=== PATIENT | male | born 1990 | race Caucasian/White ===

== ENCOUNTER 2017-12-01 10:11 | Emergency (ER) | payer OTHER ==
[2017-12-01] MEDS ORDERED: Tetan/Diph/Pertus SYR(Tdap)* 0.5 ML SYR(BOOSTRIX) use SYR IM ONE (12:25)
[2017-12-01] MEDS ORDERED: Rabies Vaccine (RabAvert)* 2.5 UNITS VIAL IM ONE (12:25)
--- NOTE | 2017-12-01 12:31 | ED ---
Bite Injury/Animal - HPI Summary HPI Summary: Patient presents with suspected bat bite the back of his neck last night. Reports [place] saw a bat flying. He continued to ride towards it and felt something on the back of his neck. His looked at his neck this morning and noticed to small red spots. He denies pain, stiffness, fever, chills, swelling. He has a history of rabies vaccine 2 and half years ago. He is unsure of his last tetanus vaccine but believes it was greater than 5 years ago. - History of Current Complaint Chief Complaint: EDAnimalBite Stated Complaint: EXPOSURE(BAT) Time Seen by Provider: 12/01/17 11:36 Hx Obtained From: Patient Pain Intensity: 0 - Allergies/Home Medications Allergies/Adverse Reactions: Allergies Allergy/AdvReac Type Severity Reaction Status Date / Time BLOOD THINNERS Allergy See Comment Uncoded 12/01/17 10:16 Home Medications: Home Medications Cholecalciferol TAB* [Vitamin D TAB*] 2,000 units PO DAILY 12/01/17 [History Confirmed 12/01/17] PMH/Surg Hx/FS Hx/Imm Hx Previously Healthy: Yes Endocrine/Hematology History: Denies: Hx Anticoagulant Therapy, Hx Blood Disorders, Hx Diabetes, Autoimmune Disease Cardiovascular History: Denies: Hx Hypertension, Hx Pacemaker/ICD Respiratory History: Denies: Hx Asthma History: Denies: Hx Dialysis, Hx Renal Disease Sensory History: Denies: Hx Hearing Aid Psychiatric History: Denies: Hx Panic Disorder - Surgical History Surgery Procedure, Year, and Place: BILATERAL ARTHROSCOPIC KNEE SURGERY; TONSILS ; WISDOM TEETH; VASECTOMY; - Immunization History Immunizations Up to Date: Unable to Obtain/Confirm Infectious Disease History: No Infectious Disease History: Denies: Hx of Known/Suspected MRSA, Traveled Outside the [place] in Last 30 Days - Family History Known Family History: Positive: None - Social History Occupation: Student - grad student Lives: With Family Alcohol Use: Rare Hx Substance Use: No Substance Use Type: Reports: None Hx Tobacco Use: No Smoking Status (MU): Never Smoked Tobacco Review of Systems Constitutional: Negative Negative: Fever, Chills, Fatigue Positive: no symptoms reported Musculoskeletal: Negative Skin: Other - 2 red areas on neck Neurological: Negative Psychological: Normal All Other Systems Reviewed And Are Negative: Yes Physical Exam Triage Information Reviewed: Yes Vital Signs On Initial Exam: Initial Vitals Temp Pulse Resp BP Pulse Ox 97.7 F 82 14 134/73 100 12/01/17 10:17 12/01/17 10:17 12/01/17 10:17 12/01/17 10:17 12/01/17 10:17 Vital Signs Reviewed: Yes Appearance: Positive: Well-Appearing, No Pain Distress, Well-Nourished Skin: Positive: Warm, Skin Color Reflects Adequate Perfusion, Dry - 2-3 1mm areas of erythema with superficial skin missing - no focal erythema, edema, scabbing, drainage Head/Face: Positive: Normal Head/Face Inspection Eyes: Positive: Normal, EOMI ENT: Positive: Hearing grossly normal Neck: Positive: Supple, Nontender Respiratory/Lung Sounds: Positive: Breath Sounds Present Cardiovascular: Positive: Normal Musculoskeletal: Positive: Normal, Strength/ROM Intact Neurological: Positive: Normal, Sensory/Motor Intact, Alert, Oriented to Person Place, Time, CN Intact II-III Psychiatric: Positive: Normal Diagnostics - Vital Signs Vital Signs Temp Pulse Resp BP Pulse Ox 12/01/17 10:17 97.7 F 82 14 134/73 100 - Laboratory Lab Statement: Any lab studies that have been ordered have been reviewed, and results considered in the medical decision making process. Bite Injury Course/Dx - Course Course Of Treatment: Will tx w/ rabies vaccine (1st dose here, 2nd dose in 3 days at [facility]). Boosted tetanus today as well. Reviewed danger s/sx of when to seek medical attention. Pt agrees w/ plan. - Diagnoses Provider Diagnosis: Bat bite wound Discharge - Sign-Out/Discharge Documenting (check all that apply): Patient Departure - Discharge Plan Condition: Stable Disposition: HOME Patient Education Materials: Animal Bite (ED) Referrals: [facility] [Medical Doctor] - Additional Instructions: You received your 1st rabies vaccine here today. You will require a 2nd vaccine in 3 days - call [facility] tomorrow to schedule 2nd injection. Wound appears to be superficial - wash daily with soap and water and monitor for signs/symptoms of infection - if these develop, seek medical attention *If you develop sign/symptoms of rabies infection (see educational handout), return to ED - Billing Disposition and Condition Condition: STABLE Disposition: Home
[2017-12-01 13:20] VITALS: BP 115/73
== END 2017-12-01 13:18 | disposition home or self-care (01) ==
LOC: ED 10:11
DX: S11.95XA Open bite of unspecified part of neck, initial encounter (principal); W55.81XA Bitten by other mammals, initial encounter; Y93.55 Activity, bike riding; Y92.828 Other wilderness area as the place of occurrence of the external cause; Z23 Encounter for immunization
CPT/HCPCS: 90471; 90675; 96372; 99281

== ENCOUNTER 2018-03-10 22:00 | Emergency (ER) | payer OTHER ==
[2018-03-10 22:31] LABS: Urine Appearance Clear; Urine Blood Negative (Negative); Urine Color Yellow; Urine Ketones Negative (Negative); Urine Protein Negative (Negative); Urine Specific Gravity 1.026 (1.010-1.030); Urine Urobilinogen Negative (Negative)
--- NOTE | 2018-03-10 23:00 | ED ---
GI/ HPI - HPI Summary HPI Summary: A 27 y/o male presents to the ED c/o testicular pain. He states that his pain radiates to his back and lower abdomen. He says that at 03/06/[address] Jennings, his urologist, for a lump on his left testicle. He states that his pain has been gradually getting worse. He admits to having nausea, but denies vomiting, hematuria, dysuria or a swollen testicle. - History of Current Complaint Chief Complaint: EDUrogenitalProblems Time Seen by Provider: 03/10/18 22:43 Stated Complaint: GROIN AND BACK PAIN Hx Obtained From: Patient Onset/Duration: Started Hours Ago, Still Present Timing: Constant Severity: Moderate Current Severity: Moderate Pain Intensity: 5 - out of 10 Additional Locations for Males: Testicles Pain Radiates to: Back - Allergy/Home Medications Allergies/Adverse Reactions: Allergies Allergy/AdvReac Type Severity Reaction Status Date / Time BLOOD THINNERS Allergy See Comment Uncoded 03/10/18 22:09 PMH/Surg Hx/FS Hx/Imm Hx Endocrine/Hematology History: Denies: Hx Anticoagulant Therapy, Hx Blood Disorders, Hx Diabetes Cardiovascular History: Denies: Hx Hypertension, Hx Pacemaker/ICD Respiratory History: Denies: Hx Asthma History: Denies: Hx Dialysis, Hx Renal Disease Sensory History: Denies: Hx Hearing Aid Psychiatric History: Denies: Hx Panic Disorder - Surgical History Surgery Procedure, Year, and Place: BILATERAL ARTHROSCOPIC KNEE SURGERY; TONSILS ; WISDOM TEETH; VASECTOMY; Infectious Disease History: No Infectious Disease History: Denies: Hx of Known/Suspected MRSA, Traveled Outside the US in Last 30 Days - Family History Known Family History: Positive: Hypertension, Diabetes Negative: Cardiac Disease - Social History Alcohol Use: Rare Hx Substance Use: No Substance Use Type: Reports: None Hx Tobacco Use: No Smoking Status (MU): Never Smoked Tobacco Review of Systems Negative: Fever Positive: Abdominal Pain, Nausea. Negative: Vomiting Positive: pain - left testicle. Negative: dysuria, hematuria Positive: Myalgia - back pain All Other Systems Reviewed And Are Negative: Yes Physical Exam - Summary Physical Exam Summary: Appearance: Well-appearing, Well-nourished, lying in bed comfortably Skin: Warm, dry, no obvious rash Eyes: sclera anicteric, no conjunctival pallor ENT: mucous membranes moist, pharynx appears normal Neck: Supple, nontender Respiratory: Clear to auscultation, no signs of respiratory distress Cardiovascular: Normal S1, S2. No murmurs. Normal distal pulses in tibial and radial bilaterally. Abdomen: Mild RUQ tenderness without peritoneal tenderness Musculoskeletal: Normal, Strength/ROM Intact Neurological: A&Ox3, awake and alert, mentation is normal, speech is fluent and appropriate Psychiatric: affect is normal, does not appear anxious or depressed Genitourinry: normal, pea sized lump on left testicle. Triage Information Reviewed: Yes Vital Signs On Initial Exam: Initial Vitals Temp Pulse Resp BP Pulse Ox 99.1 F 101 16 147/78 97 03/10/18 22:00 03/10/18 22:00 03/10/18 22:00 03/10/18 22:00 03/10/18 22:00 Vital Signs Reviewed: Yes Diagnostics - Vital Signs Vital Signs Temp Pulse Resp BP Pulse Ox 03/10/18 22:00 99.1 F 101 16 147/78 97 - Laboratory Lab Results: Lab Results 03/10/18 Range/Units 22:15 Urine Color Yellow Urine Appearance Clear Urine pH 5.0 (5-9) Ur Specific [place] 1.026 (1.010-1.030) Urine Protein Negative (Negative) Urine Ketones Negative (Negative) Urine Blood Negative (Negative) Urine Nitrate Negative (Negative) Urine Bilirubin Negative (Negative) Urine Urobilinogen Negative (Negative) Ur Leukocyte Esterase Negative (Negative) Urine Glucose Negative (Negative) Result Diagrams: 03/10/18 23:10 03/10/18 23:10 Lab Statement: Any lab studies that have been ordered have been reviewed, and results considered in the medical decision making process. - CT abdomen/pelvis CT Interpretation Completed By: Radiologist - No CT findings to correlate with patient's symptomatology. Specifically no appendicitis. This report has been reviewed by the ED physician. GIGU Course/Dx - Course Course Of Treatment: A 27 y/o male presents to the ED c/o testicular pain. He states that his pain radiates to his back and lower abdomen. He says that at he went to Dr. Jennings, his urologist, for a lump on his left testicle. He states that his pain has been gradually getting worse. He admits to having nausea, but denies vomiting, hematuria, dysuria or a swollen testicle. His PE revealed a small pea sized lump on his left testicle. His abdomen/pelvis CT revealed: No CT findings to correlate with patient's symptomatology. Specifically no appendicitis. Dx: abdominal pain. The patient will be discharged, follow up with his urologist as scheduled, and will be discharged. The patient is agreeable to this plan. - Diagnoses Provider Diagnoses: Abdominal pain Discharge - Sign-Out/Discharge Documenting (check all that apply): Patient Departure - DC - Discharge Plan Condition: Good Disposition: HOME Patient Education Materials: Acute Abdominal Pain (ED) Referrals: Moise Jennings MD [Medical Doctor] - (as scheduled) Additional Instructions: We did not find an exact cause for your pain tonight. Your CT scan and lab studies were all unremarkable. Keep the appt for the [place] as there is a small mass on the left testicle that needs further evaluation. - Attestation Statements Document Initiated by Scribe: Yes Documenting Scribe: Sanjay Tracey Provider For Whom Scribe is Documenting (Include Credential): Efrain Baker MD Scribe Attestation: ISanjay, scribed for Efrain Baker MD on 03/11/18 at 0209.
[2018-03-10 23:18] LABS: ABS Basophils 0 10^3/ul (0-0.2); ABS Eosinophils 0.1 10^3/ul (0-0.6); ABS Lymphocytes 2.4 10^3/ul (1.0-4.8); ABS Monocytes 0.8 10^3/ul (0-0.8); ABS Neutrophils 3.3 10^3/ul (1.5-7.7); ABS Nucleated RBC 0 10^3/ul; Hematocrit 43 % (42-52); Hemoglobin 14.5 g/dl (14.0-18.0); Lymphocyte % 36.2 % (25-47); Mean Corpuscular HGB Conc 34 g/dl (31-36); Mean Corpuscular Hemoglobin 30 pg (27-31); Mean Corpuscular Volume 88 fL (80-94); Mean Platelet Volume 9.1 um3 (7.4-10.4); Nucleated Red Blood Cells % 0.1; Platelet Count 187 10^3/ul (150-450); Red Blood Count 4.86 10^6/ul (4.00-5.40); Red Cell Distribution Width 13 % (10.5-15); White Blood Count 6.6 10^3/ul (3.5-10.8)
[2018-03-10 23:34] LABS: EGFR Non-African American 111.1 (>60)
[2018-03-10] MEDS ORDERED: Iohexol 300* (CONTRAST) 10 ML SDV IV ONE (23:50)
--- NOTE | 2018-03-11 01:14 | RAD ---
EXAM: CT Abdomen and Pelvis With Intravenous Contrast EXAM DATE/TIME: 03/11/2018 12:12 AM CLINICAL HISTORY: 27 years old, male; Pain; Abdominal pain; Additional info: Low abd pain radiating to the low back TECHNIQUE: Axial computed tomography images of the abdomen and pelvis with intravenous contrast. All CT scans at this facility use at least one of these dose optimization techniques: automated exposure control; mA and/or kV adjustment per patient size (includes targeted exams where dose is matched to clinical indication); or iterative reconstruction. Coronal and sagittal reformatted images were created and reviewed. CONTRAST: 91 ml of omni 300 administered intravenously. COMPARISON: No relevant prior studies available. FINDINGS: Lower thorax: No acute findings. ABDOMEN: Liver: Normal. No mass. Gallbladder and bile ducts: Normal. No calcified stones. No ductal dilation. Pancreas: Normal. No ductal dilation. Spleen: Normal. No splenomegaly. Adrenals: Normal. No mass. Kidneys and ureters: Normal. No hydronephrosis. Stomach and bowel: Incompletely distended grossly normal stomach. Normal caliber small bowel. No colonic masses or segmental wall thickening. Appendix: Normal caliber appendix without wall thickening or adjacent inflammation. Visualized muscles are normal in attenuation and girth. PELVIS: Bladder: The bladder is decompressed but otherwise normal. Reproductive: Normal sized prostate. Normal seminal vesicles. ABDOMEN and PELVIS: Intraperitoneal space: Normal. No free air. No significant fluid collection. Bones/joints: No fractures. No suspicious bone lesions. Soft tissues: Normal. No hernias. Vasculature: Normal. No abdominal aortic aneurysm. Lymph nodes: Normal. No enlarged lymph nodes. IMPRESSION: No CT findings to correlate with patient's symptomatology. Specifically no appendicitis. To contact [facility] with a general question: Operations Center - [phone] For direct physician to physician contact: Physician Hotline - [phone] [facility] ([facility] Facility ID #[id number])
[2018-03-11 02:40] VITALS: BP 122/74
== END 2018-03-11 01:55 | disposition home or self-care (01) ==
LOC: ED 22:00
DX: R10.9 Unspecified abdominal pain (principal); R11.0 Nausea; N50.812 Left testicular pain; M54.9 Dorsalgia, unspecified
CPT/HCPCS: 36415; 74177; 80053; 81003; 83690; 85025; 99283; Q9967

== ENCOUNTER → 2018-03-14 07:05 | Day surgery (SDC) | payer OTHER ==
--- NOTE | 2018-03-12 21:17 | HP ---
CC: [facility]; Dr. Ruddy Westbrook * ADMITTING HISTORY AND PHYSICAL: DATE OF ADMISSION: 03/14/18 ADMITTING DIAGNOSIS: Left testicular mass. PLANNED PROCEDURE: Left radical orchiectomy. SURGEON: Dr. Jennings. HISTORY OF PRESENT ILLNESS: Shad Ludwig is a 27-year-old gentleman who was recently seen in followup. The reason for followup had been because of preexisting right hydrocele. During the examination, I noted that he had new finding of a left lower pole testicular mass; this appeared to be a solid mass. This was confirmed on ultrasound and he is now being brought in for left radical orchiectomy. PAST MEDICAL HISTORY: Significant for diagnosis of cavernous angioma. MEDICATIONS ON ADMISSION: None. ALLERGIES: No known drug allergies. REVIEW OF SYSTEMS: He is otherwise in excellent health. There is no history of diabetes mellitus or any other major systemic illness. PHYSICAL EXAMINATION GENERAL: Reveals a pleasant, healthy-appearing young gentleman. VITAL SIGNS: Blood pressure is /78; pulse 101 per minute, regular; oxygen saturation 98% on room air. LUNGS: Clear bilaterally. CARDIOVASCULAR: Regular rate and rhythm. S1, S2. ABDOMEN: Soft without masses. GENITALIA: Testicles are descended bilaterally. Right hydrocele is noted. On the left side, there appears to be a solid mass in the lower pole of the left testicle. IMPRESSION: I had a detailed discussion with Shad regarding the findings of testicular mass and high likelihood of this being a testicular malignancy. He had gone to the emergency room for some abdominal pain and a CT scan with contrast was done of the abdomen and pelvis and there was no evidence of any retroperitoneal adenopathy noted. Markers were drawn for testicular cancer and those are pending at the time of this dictation. I also had a discussion with Dr. Ruddy Westbrook regarding the cavernous angioma. His feeling is that this should not be a factor in the upcoming surgery and the only consideration would be to try and avoid anticoagulation, which is not planned during this procedure. PLAN: Left radical orchiectomy. [id number]/[facility] #: [id number] MTDD
[~2018-03-14 07:05] MED LIST: Buffered Lidocaine 0.9% SYRIN* 5 ML/SYR SYRINGE INTRADERM ONE; Bupivacaine 0.5% SDV PF* 30ML VIAL ONE; Dexamethasone IV* 4 MG/ML 1 ML (4 MG) IV SLOW PU ONE; Dexamethasone IV* 4 MG/ML 1 ML (4 MG) ONE; DiMENhydriNATE IV* 50 MG/ML VIAL IV PUSH PRN; DiMENhydriNATE IV* 50 MG/ML VIAL ONE; Famotidine IV* 10 MG/ML 2 ML (20 mg) IV ONE; Famotidine IV* 10 MG/ML 2 ML (20 mg) ONE; Lidocaine 1% INJ* 10 MG/ML 30 ML SDV ONE; Lidocaine 2% PF * 5 ML VIAL ONE; Midazolam* 1 MG/ML 2 ML VIAL (2 MG) ONE; Naloxone* 0.4 MG/ML 1 ML VIAL IV PRN; Propofol* 10 MG/ML 20 ML BTL IV PUSH ONE; cefTRIAXone(*) 1 GM ADVAN/BAG ONE; fentaNYL* 50 MCG/ML 2 ML VIAL (100 MCG VIAL) ONE; oxyCODONE/Acetamin 5/325 MG* TAB ONE
[2018-03-14] MEDS: fentaNYL* 50 MCG/ML 2 ML VIAL (100 MCG VIAL) IV PRN ×4 (10:05→10:37)
--- NOTE | 2018-03-15 01:40 | OP ---
CC: Dr. Ruddy Westbrook * DATE OF OPERATION: 03/14/18 - [facility] DATE OF : 89 SURGEON: Dr. Jennings. KEYBOARDING CLERK: Dr. Galaviz. ANESTHESIOLOGIST: Dr. Johnson. ANESTHESIA: General. PRE-OP DIAGNOSIS: Left testicular mass. POST-OP DIAGNOSIS: Left testicular mass. OPERATIVE PROCEDURE: Left radical orchiectomy. COMPLICATIONS: None. BLOOD LOSS: Less than 25 cc. SPECIMEN: Left testicle and spermatic cord. POSTOPERATIVE CONDITION: Stable. INDICATIONS: Shad Ludwig is a 27-year-old gentleman who I had been seeing in followup for a previously diagnosed right hydrocele. During his annual followup , I noted on examination that he had a left testicular mass which had not been previously noted. He did not have any pain and an ultrasound confirmed solid intratesticular mass. He subsequently went to the emergency room for some abdominal pain at which time a CT scan was performed, which did not reveal any evidence of retroperitoneal adenopathy. He is now being brought in for left radical orchiectomy. DESCRIPTION OF PROCEDURE: After induction of general anesthesia, the patient was placed on the operating table in supine position. Sequential compression devices were in place and functioning. External genitalia and the lower abdomen were prepped and draped in the usual sterile fashion. An incision was made in the left inguinal area and the skin and subcutaneous tissue were divided in the line of the incision. Tarik's fascia was divided. The external ring was identified and the external oblique was opened to facilitate access to the cord. The ilioinguinal nerve was not visualized during the procedure and certainly was not transected during the procedure. The cord structures were identified and encircled. Next, the cord was carefully dissected proximally to the level of the peritoneal reflection. Once this was done, the cord was divided proximally after doubly ligating it, first with 0 chromic suture, then with 0 silk ties. The proximal end was also controlled and the cord was then dissected distally freeing it sharply of its attachments. The testicle was delivered into the wound and the gubernacular attachments were sharply divided. Once this was done, the specimen consisting of the testicle and the spermatic cord was handed off the field. The wound was irrigated. The edges of the external oblique were approximated using interrupted sutures of 2-0 Vicryl again taking care to make sure there was no entrapment of any nerve. Tarik's fascia was approximated using interrupted sutures of 3-0 Vicryl. About 25 cc of 0.5% Marcaine was infiltrated for postoperative analgesia. Skin was approximated using 4-0 Vicryl running subcuticular sutures. Dry sterile dressings were applied. All sponge and needle counts were correct. The patient tolerated the procedure satisfactorily and was transferred back to the recovery area in stable condition. [id number]/[facility] #: [id number] [facility]
[2018-03-21 12:48] VITALS: BP 120/71
== END | disposition home or self-care (01) ==
LOC: OR 07:05
PROVIDERS: ATTEND Urology
DX: C62.12 Malignant neoplasm of descended left testis (principal); D18.01 Hemangioma of skin and subcutaneous tissue
CPT/HCPCS: 88309; 88341; 88342; A9270-GY; J0696; J1100; J1240; J2250; J2704; J3010

== ENCOUNTER 2019-01-31 17:06 | Emergency (ER) | payer OTHER ==
--- OUTSIDE RECORDS SUMMARY | 2019-01-31 17:20 | XMS REPORT | Continuity of Care Document ---
:1990 External Reference #:[id number] Author Name Kristofer Galdamez, OD Address [address] [place] [address] Care Team Providers Name Role Phone [facility] Care Team Information Nuisance Wildlife Specialist [phone] Problems Active Problems Provider Date Hemangioma of intracranial structure Kristofer Glaser O.D. Onset: 08/11/2014 Pain in eye Kristofer Glaser O.D. Onset: 04/23/2014 Myopia Kristofer Glaser O.D. Onset: 11/03/2013 Tear film insufficiency Kristofer Glaser O.D. Onset: 11/03/2013 Social History Type Date Description Comments Sex Unknown ETOH Use Rarely consumes alcohol Tobacco Use Start: Unknown Patient has never smoked Smoking Status Reviewed: 01/26/19 Patient has never smoked Allergies, Adverse Reactions, Alerts Description No Known Drug Allergies Medications Active Medications SIG Qnty Indications Ordering Provider Date Vitamin D Unknown Tablets Immunizations Description No Information Available Vital Signs Date Vital Result Comment 02/08/2018 11:38am Intraocular Pressure Right Eye 17 mmHg Intraocular Pressure Left Eye 17 mmHg 04/16/2016 3:00pm Intraocular Pressure Right Eye 18 mmHg Intraocular Pressure Left Eye 16 mmHg Results Description No Information Available Procedures Date Code Description Status 01/26/2019 78091 Refraction Completed 01/26/2019 85149 Eye Exam Est Comprehensive Completed Medical Devices Description No Information Available Encounters Description No Information Available Assessments Date Code Description Provider 01/26/2019 H52.13 Myopia, bilateral Kristofer Galdamez, OD 01/26/2019 D18.02 Hemangioma of intracranial structures Kristofer Galdamez, OD Plan of Treatment No Information Available Functional Status Description No Information Available Mental Status Description No Information Available Referrals Description No Information Available
--- NOTE | 2019-01-31 18:41 | ED ---
Lower Extremity - HPI Summary HPI Summary: 28-year-old male presents with pain over lateral aspect of left knee for the past month. He states that his legs been feeling weaker. He denies any numbness tingling. No injury. Does have a history of testicular cancer that had removed a year ago. did not need chemo or radiation. He states they just keep doing scans to monitor such. Is concerned about this pain that is new cancer. Also noticed some bumps on the pettit that are nontender. No night pain. No weight loss or night sweats. - History of Current Complaint Chief Complaint: EDExtremityLower Stated Complaint: LEG PAIN PER PT Time Seen by Provider: 01/31/19 17:44 Pain Intensity: 6 - Allergies/Home Medications Allergies/Adverse Reactions: Allergies Allergy/AdvReac Type Severity Reaction Status Date / Time BLOOD THINNERS Allergy See Comment Uncoded 01/31/19 17:13 PMH/Surg Hx/FS Hx/Imm Hx Endocrine/Hematology History: Denies: Hx Anticoagulant Therapy, Hx Blood Disorders, Hx Diabetes Cardiovascular History: Denies: Hx Hypertension, Hx Pacemaker/ICD, Other Cardiovascular Problems/ Disorders Respiratory History: Reports: Hx Asthma - as a child, and 2 years ago Denies: Other Respiratory Problems/Disorders GI History: Denies: Other GI Disorders History: Reports: Other Problems/Disorders - Mass left testicle Denies: Hx Dialysis, Hx Renal Disease Musculoskeletal History: Reports: Other Musculoskeletal History - Minor scoliosis Sensory History: Reports: Hx Contacts or Glasses - Glasses Denies: Hx Hearing Aid Opthamlomology History: Reports: Hx Contacts or Glasses - Glasses Neurological History: Reports: Hx Migraine - Optical migraines- weekly, Other Neuro Impairments/Disorders - Genetic Brain Condition-Cavernous malformation Psychiatric History: Denies: Hx Panic Disorder - Cancer History Cancer Type, Location and Year: testicular - Surgical History Surgery Procedure, Year, and Place: BILATERAL ARTHROSCOPIC KNEE SURGERY;. TONSILS;. WISDOM TEETH;. VASECTOMY, LEFT ORCHIECTOMY Hx Anesthesia Reactions: No Infectious Disease History: No Infectious Disease History: Denies: Hx of Known/Suspected MRSA, Traveled Outside the [place] in Last 30 Days - Family History Known Family History: Positive: None, Hypertension, Diabetes Negative: Cardiac Disease - Social History Alcohol Use: Rare Hx Substance Use: No Substance Use Type: Reports: None Hx Tobacco Use: No Smoking Status (MU): Never Smoked Tobacco Review of Systems Negative: Fever Negative: Chest Pain Negative: Shortness Of Breath Positive: Myalgia - left knee pain All Other Systems Reviewed And Are Negative: Yes Physical Exam Triage Information Reviewed: Yes Vital Signs On Initial Exam: Initial Vitals Temp Pulse Resp BP Pulse Ox 99.8 F 97 16 142/80 98 01/31/19 17:09 01/31/19 17:09 01/31/19 17:09 01/31/19 17:09 01/31/19 17:09 Vital Signs Reviewed: Yes Appearance: Positive: Well-Appearing Skin: Positive: Warm, Dry Head/Face: Positive: Normal Head/Face Inspection Eyes: Positive: Normal, Conjunctiva Clear ENT: Positive: Pharynx normal Respiratory/Lung Sounds: Positive: Clear to Auscultation, Breath Sounds Present Cardiovascular: Positive: Normal, RRR Musculoskeletal: Positive: Strength/ROM Intact - leg, Other - tenderness over lateral aspect of left knee, bumps noted over pettit that are nontender, sensation grossly intact, no change of pain with movement, Neurological: Positive: Normal Psychiatric: Positive: Normal Diagnostics - Vital Signs Vital Signs Temp Pulse Resp BP Pulse Ox 01/31/19 17:09 99.8 F 97 16 142/80 98 - Laboratory Lab Statement: Any lab studies that have been ordered have been reviewed, and results considered in the medical decision making process. - Radiology knee Radiology Interpretation Completed By: ED Physician Summary of Radiographic Findings: no suspicious lesions Lower Extremity Course/Dx - Course Course Of Treatment: 28-year-old male presents with pain over lateral aspect of left knee for the past month. He states that his legs been feeling weaker. He denies any numbness tingling. No injury. Does have a history of testicular cancer that had removed a year ago. did not need chemo or radiation. He states they just keep doing scans to monitor such. Is concerned about this pain. Also noticed some bumps on the pettit that are nontender. No night pain. No weight loss or night sweats. On exam has tenderness over lateral aspect of left knee. Grossly intact. X-ray shows no gross abnormality as read by me and dr bales. Told to call tomorrow morning for official read. Told to follow-up with orthopedic if symptoms persist. Patient understands agrees plan. - Diagnoses Differential Diagnosis/HQI/PQRI: Positive: Fracture (Closed), Sprain, Strain Provider Diagnoses: Left knee pain Discharge ED - Sign-Out/Discharge Documenting (check all that apply): Patient Departure Patient Received Moderate/Deep Sedation with Procedure: No - Discharge Plan Condition: Good Disposition: HOME Patient Education Materials: Leg Pain (ED) Referrals: [facility] - [facility] [Primary Care Provider] - Alba Ruffin MD [Medical Doctor] - Additional Instructions: can call tomorrow for official read follow up with ortho if pain continues Return to ED if develop any new or worsening symptoms - Billing Disposition and Condition Condition: GOOD Disposition: Home
[2019-01-31 19:02] VITALS: BP 114/76
--- NOTE | 2019-02-01 13:52 | PN ---
Progress Note - Progress Note Date of Service: 01/31/19 Note: Final radiology read: IMPRESSION: 1. 7 MM NONAGGRESSIVE APPEARING LUCENT LESION WITH SCLEROTIC RIM ALONG THE PROXIMAL LATERAL TIBIA. OSTEOID OSTEOMA VERSUS NONOSSIFYING FIBROMA ARE CONSIDERED. IN THE ABSENCE OF INTERVAL CLINICAL SUSPICION, A FOLLOW-UP RADIOGRAPH IN 3 MONTHS SHOULD BE PERFORMED TO DOCUMENT STABILITY. OSTEOID OSTEOMAS TYPICALLY PRESENT WITH NIGHTTIME PAIN THAT SIGNIFICANTLY RELIEVED WITH NSAIDS USE. R2 These findings were discussed with ELSIE Ramon at 8:18 a.m. on January Preliminary Imaging Read R2 Findings discussed with pt. today at [id number]. Pt. notes he will f.u with his oncologist for repeat imaging.
== END 2019-01-31 19:00 | disposition home or self-care (01) ==
LOC: ED 17:06
DX: M25.562 Pain in left knee (principal); Z98.52 Vasectomy status; Z88.8 Allergy status to other drugs, medicaments and biological substances
CPT/HCPCS: 99281